=== PATIENT | female | born 1990 | race Two or more races ===

== ENCOUNTER 2024-12-25 17:37 | Emergency (ER) | payer OTHER ==
[~2024-12-25] VITALS: Ht 165.1 cm; Wt 70.3 kg
[2024-12-25 18:02] VITALS: TEMP 98.2
[2024-12-25] MEDS ORDERED: LACTULOSE 10 G/15 ML UDC (PYXIS) ONE (19:06)
[2024-12-25] MEDS ORDERED: KETOROLAC TROMETHAMINE 15 MG/ML VIAL ONE (19:06)
[2024-12-25] MEDS: KETOROLAC TROMETHAMINE 15 MG/ML VIAL IM ONE (19:11)
[2024-12-25] MEDS ORDERED: ONDA4TAB5 PO (19:11)
[2024-12-25] MEDS ORDERED: SODI354S PO (19:11)
[2024-12-25] MEDS ORDERED: LACT10SO58 PO (19:11)
[2024-12-25] MEDS: LACTULOSE 10 G/15 ML UDC (PYXIS) PO ONE (19:12)
[2024-12-25 19:15] VITALS: BP 138/81; O2SAT 98
== END 2024-12-25 19:16 | disposition home or self-care (01) ==
LOC: ER 17:45
DX: K59.00 Constipation, unspecified (principal)
CPT/HCPCS: 99283; 96372; J1885